=== PATIENT | male | born 1985 | race Caucasian/White ===

== ENCOUNTER 2017-05-04 14:16 | Emergency (ER) | payer OTHER ==
[2017-05-04 15:31] LABS: URINE BILIRUBIN NEGATIVE (NEGATIVE); URINE BLOOD LARGE (NEGATIVE); URINE GLUCOSE (UA) NEGATIVE (NEGATIVE); URINE KETONE TRACE mg/dL (NEGATIVE); URINE PH 5.5 (4.6 - 8.0); URINE PROTEIN 30 mg/dL (NEGATIVE); URINE UROBILINOGEN 0.2 E.U./dL (0.2 - 1.0)
[2017-05-04 15:42] LABS: URINE COLOR BROWN
[2017-05-04 15:43] LABS: URINE BACTERIA 1+ /hpf (NONE SEEN); URINE EPITHELIAL CELLS FEW /lpf (FEW); URINE RBC >100 /hpf (0-5); URINE WBC 0-2 /hpf (0-5)
--- NOTE | 2017-05-04 16:28 | ED Physician Chart ---
ED Chief Complaint/HPI - Patient Information Date Seen:: 05/04/17 Time Seen:: 14:25 Chief Complaint:: Left Flank Pain History of Present Illness:: onset x one hour of left flank pain which resolved upon ER arrival; pt denies trauma, H/As, neck pain, C/P, SOB, cough, Abd. Pain, A/N/V/D/C, fever, chills, or urinary s/s Allergies:: Allergies Allergy/AdvReac Type Severity Reaction Status Date / Time No Known Allergies Allergy Verified 05/04/17 14:26 Vitals:: Vital Signs - 8 hr 05/04/17 14:27 Temp 98.3 F HR 68 RR 17 BP 153/89 O2 Sat % 99 Historian:: Patient Review:: Nurse's Note Reviewed ED Review of Systems - Review of Systems General/Constitutional: No fever, No chills, No weight loss, No weakness, No diaphoresis, No edema, No loss of appetite Skin: No skin lesions, No rash, No bruising Head: No headache, No light-headedness Eyes: No loss of vision, No pain, No diplopia ENT: No earache, No nasal drainage, No sore throat, No tinnitus Neck: No neck pain, No swelling, No thyromegaly, No stiffness, No mass noted Cardio Vascular: No chest pain, No palpitations, No PND, No orthopnea, No edema Pulmonary: No SOB, No cough, No sputum, No wheezing GI: No nausea, No vomiting, No diarrhea, No pain, No melena, No hematochezia, No constipation, No hematemesis G/U: No dysuria, No frequency, No hematuria, No nacturia Musculoskeletal: Bone or joint pain, Back pain, Muscle pain Endocrine: No polyuria, No polydipsia Psychiatric: No prior psych history, No depression, No anxiety, No suicidal ideation Hematopoietic: No bruising, No lymphadenopathy Allergic/Immuno: No urticaria, No angioedema Neurological: No syncope, No focal symptoms, No weakness, No paresthesia, No headache, No seizure, No dizziness, No confusion, No vertigo ED Past Medical History - Past Medical History Obtainable: Yes Past Medical History: No significant medical hx Family History: HTN Social History: Non Smoker, No Alcohol, No Drug Use, Single, Employed Surgical History: None Psychiatricy History: None Medication: Reviewed Family Medical History - Family Member Mother History Unknown: Yes ED Physical Exam - Physical Examination General/Constitutional: Awake, Well-developed, well-nourished, Alert, No distress, GCS 15, Non-toxic appearing, Ambulatory Head: Atraumatic Eyes: Lids, conjuctiva normal, PERRL, EOMI Skin: Nl inspection, No rash, No skin lesions, No ecchymosis, Well hydrated, No lymphadenopathy ENMT: External ears, nose nl, Nasal exam nl, Lips, teeth, gums nl Neck: Nontender, Full ROM w/o pain, No JVD, No nuchal rigidity, No bruit, No mass, No stridor Respiratory: Nl effort/Exclusion, Clear to Auscultation, No Wheeze/Rhonchi/Rales Cardio Vascular: RRR, No murmur, gallop, rubs, NL S1 S2 GI: No tenderness/rebounding/guarding, No organomegaly, No hernia, Normal BS's, Nondistended, No mass/bruits, No McBurney tenderness : No CVA tenderness Extremities: No tenderness or effusion, Full ROM, normal strength in all extremities, No edema, Normal digits & nails Neuro/Psych: Alert/oriented, DTR's symmetric, Normal sensory exam, Normal motor strength, Judgement/insight normal, Mood normal, Normal gait, No focal deficits Misc: Normal back, No paraspinal tenderness ED Labs/Radiology/EKG Results - Lab Results Results: Laboratory Tests 05/04/17 14:45 Urine Source [place] Urine Color BROWN Urine Clarity HAZY Urine pH 5.5 Ur Specific [place] >= 1.030 Urine Protein 30 H Urine Glucose (UA) NEGATIVE Urine Ketones TRACE Urine Blood LARGE H Urine Nitrate NEGATIVE Urine Bilirubin NEGATIVE Urine Urobilinogen 0.2 Ur Leukocyte Esterase NEGATIVE Urine RBC >100 H Urine WBC 0-2 Ur Epithelial Cells FEW Urine Bacteria 1+ H Urine Mucus FEW Comments:: + Pyuria; + Hematuria/ RBCs ED Septic Shock - . Is Septic Shock (SBP<90, OR Lactate>4 mmol\L) present?: No - <6hrs of presentation: Vital Signs: Vital Signs - 8 hr 05/04/17 14:27 Temp 98.3 F HR 68 RR 17 BP 153/89 O2 Sat % 99 ED Reassessment (Disposition) - Reassessment Reassessment:: pt is asymptomatic upon discharge Reassessment Condition:: Improved - Diagnosis Diagnosis:: UTI; Hematuria; Nephrolithiasis; Ureterolithiasis; Kidney Stones; Back Pain; L- S Strain; Flank Pain; Cystitis - Aftercare/Follow up Instructions Aftercare/Follow-Up Instructions:: Counseled pt regarding lab results/diagnosis & need follow up, Refer to Discharge Instructions, Counseled pt & family regarding lab results/diagnosis & need follow up Medication Prescribed:: Rx: Doxycycline 100mg po bid x 10 days; Tylenol #3: take as prescribed (#10); Encourage Fluids; Strain all Urine with a Urine Strainer - Patient Disposition Discharge/Transfer:: Home Condition at Disposition:: Stable, Improved (RTER prn if existing s/s reoccur and/or get worse and/or any other new s/s occur; ACIs given for all above Dx; Refer to Urologist/Patient Safety Manager MARIA E; F/U with PMD in one day or prn; RTER prn if concerned) ED Discharge Plan - Patient Disposition Admit/Discharge/Transfer: PT DISCHARGED HOME Condition at Disposition: Stable Instructions: Urinary Tract Infection Additional Instructions: 1. Follow up with your Primary Care Provider in 1-2 days 2. Take medication as prescribed. 3. If symptoms worse, return to the Emergency department
== END 2017-05-04 16:00 | disposition home or self-care (01) ==
LOC: ER 14:16
DX: N39.0 Urinary tract infection, site not specified (principal); N20.0 Calculus of kidney; R31.9 Hematuria, unspecified; N20.2 Calculus of kidney with calculus of ureter
CPT/HCPCS: 81001-TC; 87086-90; Z7502